=== PATIENT | female | born 1950 | race Caucasian/White ===

== ENCOUNTER 2016-05-29 21:21 | Emergency (ER) | payer MEDICARE, OTHER ==
[~2016-05-29] VITALS: Ht 170.2 cm; Wt 107.3 kg
[2016-05-29 21:30] VITALS: Ht 170.2 cm; Wt 107.3 kg
--- NOTE | 2016-05-29 21:41 | ERA ---
ER Documentation Chief Complaint Date/Time DATE: 05/29/16 TIME: 21:40 Chief Complaint Dizziness HPI The patient is a 66-year-old female, presenting to the ER because of dizziness and nausea while she was having a loose bowel movement in the restroom. He had a mechanical fall, denies any head trauma, denies syncope, near syncope, neck pain, chest pain, dyspnea, abdominal pain, vomiting, dysuria. She does not smoke does not drink Past medical history: Diabetes mellitus, rheumatoid arthritis, hypertension, dyslipidemia, osteoporosis, bilateral Charcot feet Past surgical history: Glaucoma, oral tumor, right ankle in 2014 ROS All systems reviewed and are negative except as per history of present illness. Medications Home Meds Active Scripts Acetaminophen* (Tylenol*) 325 Mg Tablet, 2 TAB PO Q6 Y for PAIN AND OR ELEVATED TEMP, #20 TAB Prov:FER SANCHEZ MD 05/30/16 Ciprofloxacin Hcl* (Ciprofloxacin Hcl*) 500 Mg Tablet, 500 MG PO BID for 7 Days , TAB Prov:FER SANCHEZ MD 05/30/16 Allergies Allergies: Coded Allergies: No Known Allergy (Unverified , 05/29/16) Physical Exam Vitals Vital Signs Date Time Temp Pulse Resp B/P Pulse Ox O2 Delivery O2 Flow Rate FiO2 05/30/16 00:30 75 21 118/53 97 Room Air 05/30/16 00:22 99.7 05/29/16 23:32 102.0 75 18 104/64 97 Nasal Cannula 2.0 05/29/16 21:30 Nasal Cannula 2 05/29/16 21:30 104.2 90 18 134/61 86 Physical Exam Const: No acute distress. Head: Atraumatic. Eyes: Normal Conjunctiva. ENT: Normal External Ears, Nose and Mouth. Neck: Full range of motion. No meningismus. Resp: Clear to auscultation bilaterally. Cardio: Regular rate and rhythm, no murmurs. Abd: Soft, non distended, normal bowel sounds, non tender. Skin: No petechiae or rashes. Back: No midline or flank tenderness. Ext: No cyanosis, or edema. Right ankle is immobilized Neur: Awake and alert. No focal deficit Psych: Normal Mood and Affect. Result Diagram: 05/29/16 6704 05/29/16 0100 Results 24 hrs Laboratory Tests Test 05/29/16 21:55 05/29/16 23:20 05/29/16 23:45 05/30/16 00:57 White Blood Count 11.010^3/ul Red Blood Count 3.8110^6/ul Hemoglobin 10.3g/dl Hematocrit 32.7% Mean Corpuscular Volume 85.8fl Mean Corpuscular Hemoglobin 27.0pg Mean Corpuscular Hemoglobin Concent 31.5g/dl Red Cell Distribution Width 17.1% Platelet Count 34418^3/UL Mean Platelet Volume 11.2fl Neutrophils % 71.6% Lymphocytes % 14.4% Monocytes % 12.2% Eosinophils % 0.8% Basophils % 0.5% Nucleated Red Blood Cells % 0.0/100WBC Neutrophils # 7.910^3/ul Lymphocytes # 1.610^3/ul Monocytes # 1.310^3/ul Eosinophils # 0.110^3/ul Basophils # 0.110^3/ul Nucleated Red Blood Cells # 0.010^3/ul Prothrombin Time 14.8Sec Prothrombin Time Ratio 1.2 INR International Normalized Ratio 1.16 Activated Partial Thromboplast Time 30.7Sec Lactic Acid Level 1.7mmol/L 1.2mmol/L Sodium Level 133mmol/L Potassium Level 4.2mmol/L Chloride Level 99mmol/L Carbon Dioxide Level 26mmol/L Anion Gap 12 Blood Urea Nitrogen 33mg/dl Creatinine 1.83mg/dl Glucose Level 96mg/dl Calcium Level 8.4mg/dl Total Bilirubin < -0.3mg/dl Direct Bilirubin mg/dl Indirect Bilirubin < -0.3mg/dl Aspartate Amino Transf (AST/SGOT) 26IU/L Alanine Aminotransferase (ALT/SGPT) 23IU/L Alkaline Phosphatase 83IU/L Troponin I 0.025ng/ml Total Protein 6.4g/dl Albumin 3.5g/dl Globulin 2.90g/dl Albumin/Globulin Ratio 1.20 Lipase 28U/L Bedside Urine pH (LAB) 5.5 Bedside Urine Protein (LAB) 1+ Bedside Urine Glucose (UA) Negative Bedside Urine Ketones (LAB) Trace Bedside Urine Blood Negative Bedside Urine Nitrite (LAB) Negative Bedside Urine Leukocyte Esterase (L Negative Current Medications Medications (Trade) Dose Ordered Sig/Pham Route PRN Reason Start Time Stop Time Status Last Admin Dose Admin Acetaminophen (Tylenol Tab) 650 mg ONCE STAT PO 3/30/17 21:52 05/29/16 21:54 DC 05/29/16 22:20 Ibuprofen (Motrin) 600 mg ONCE ONCE PO 05/29/16 22:00 05/29/16 22:01 DC 05/29/16 22:20 Ciprofloxacin (Cipro) 500 mg ONCE ONCE PO 05/30/16 01:30 05/30/16 01:31 Procedures/MDM [place] [id number] Radiology Main Line: [phone] DIAGNOSTIC IMAGING REPORT Patient: KHLOE BERG : 1950 Age: 66 Sex: F MR #: [id number] DOS: 05/29/162151 Ordering MD: FER SANCHEZ MD Location: E/R Room/Bed: PROCEDURE: US bilateral lower extremity veins. CLINICAL INDICATION: Bilateral leg pain and swelling. TECHNIQUE: Multiple longitudinal and transverse images of the bilateral lower extremity veins were obtained with ortiz scale and color Doppler imaging. The common femoral vein, femoral vein, and popliteal vein were evaluated. 2D grayscale measurements with compression sonography, color Doppler, and pulsed Doppler with augmentation. COMPARISON: No prior studies are available for comparison. FINDINGS: The bilateral common femoral, femoral and popliteal veins are normally compressible throughout. Color flow demonstrates normal filling of the vessels. Normal waveforms are visualized and there is normal response to augmentation. IMPRESSION: 1. No evidence of deep vein thrombosis involving either lower extremity. RPTAT: QQ .Chris Espinoza MD, MD Date Time Electronically viewed and signed by .Chris Espinoza MD, on 05/29/2016 22:30 .R/ CC: FER SANCHEZ MD [place] [address] Radiology Main Line: [phone] DIAGNOSTIC IMAGING REPORT Patient: KHLOE BERG : 1950 Age: 66 Sex: F MR #: [id number] [facility] #: [id number] DOS: 05/29/162151 Ordering MD: FER SANCHEZ MD Location: E/R Room/Bed: PROCEDURE: XR Chest. CLINICAL INDICATION: Cough. Sepsis. TECHNIQUE: Single frontal view. COMPARISON: None. FINDINGS: There is mild atelectasis at the lung bases. The lungs are otherwise clear. The heart size is normal. There is no pleural effusion. There is no pneumothorax. IMPRESSION: 1. Mild atelectasis at the lung bases. 2. Otherwise normal chest x-ray. RPTAT: QQ .Chris Espinoza MD, MD Date Time Electronically viewed and signed by .Chris Espinoza MD, MD on 05/29/2016 22:30 .R/ CC: FER SANCHEZ MD EKG: Read by emergency physician Rate/Rhythm: Normal Sinus Rhythm 85 beats/min QRS, ST, T-waves: No ST elevation, no T inversion, LAD, LVH Impression: Abnormal EKG MEDICAL MAKING DECISION: The patient is a 66-year-old female, presenting with acute diarrhea, acute dehydration, acute febrile illness, acute dehydration, acute renal insufficiency and acute dizziness, most likely due to acute dehydration. She was treated with Motrin and Tylenol for fever and Cipro for suspected infectious diarrhea. The differential diagnoses considered include but are not limited to cholelithiasis, cholecystitis, cystitis, pancreatitis, hepatitis, gastritis, peptic ulcer disease, gastric ulcer, appendicitis, diverticulitis, cholangitis, choledocholithiasis, partial small bowel obstruction. The differential diagnoses for acute dizziness considered include but are not limited to central causes such as cerebellar infarct, cerebellar hemorrhage, cerebellar tumor, acoustic neuroma, peripheral causes such as benign positional vertigo, labyrinthitis, medication, Meniere's disease. Departure Diagnosis: Primary Impression: Acute febrile illness Additional Impressions: Diarrhea Renal insufficiency Dehydration Dizziness Anemia Condition: Good Comments She was discharged with Cipro and Tylenol and advised to return tomorrow for reevaluation FER SANCHEZ MD May 29, 2016 21:41
[2016-05-29] MEDS ORDERED: ACETAMINOPHEN 325 MG TAB PO STA (21:52)
[2016-05-29] MEDS ORDERED: IBUPROFEN 600 MG TAB PO ONE (22:00)
[2016-05-29 22:09] LABS: ADD SCAN DIFF NO
[2016-05-29 22:10] LABS: BASOPHIL # 0.1 10^3/ul (0.0-0.1); BASOPHILS % 0.5 % (0.0-2.0); EOSINOPHILS # 0.1 10^3/ul (0.0-0.5); EOSINOPHILS % 0.8 % (0.0-7.0); HEMATOCRIT 32.7 % (37.0-47.0); HEMOGLOBIN 10.3 g/dl (12.0-16.0); LYMPHOCYTES # 1.6 10^3/ul (0.8-2.9); LYMPHOCYTES % 14.4 % (15.0-51.0); MEAN CORPUSCULAR HGB CONC 31.5 g/dl (32.0-37.0); MEAN CORPUSCULAR VOLUME 85.8 fl (82.0-101.0); MEAN PLATELET VOLUME 11.2 fl (7.4-10.4); MONOCYTE # 1.3 10^3/ul (0.3-0.9); MONOCYTES % 12.2 % (0.0-11.0); NEUTROPHIL # 7.9 10^3/ul (1.6-7.5); NEUTROPHILS % 71.6 % (39.0-77.0); PLATELET COUNT 192 10^3/UL (140-415); RED BLOOD COUNT 3.81 10^6/ul (4.20-5.40); RED CELL DISTRIBUTION WIDTH 17.1 % (11.5-14.5)
[2016-05-29 22:24] LABS: INR 1.16; PARTIAL THROMBOPLASTIN TIME 30.7 Sec (25.0-35.0); PROTIME 14.8 Sec (12.2-14.2); PT RATIO 1.2
--- NOTE | 2016-05-29 22:30 | RADRPT ---
PROCEDURE: XR Chest. CLINICAL INDICATION: Cough. Sepsis. TECHNIQUE: Single frontal view. COMPARISON: None. FINDINGS: There is mild atelectasis at the lung bases. The lungs are otherwise clear. The heart size is normal. There is no pleural effusion. There is no pneumothorax. IMPRESSION: 1. Mild atelectasis at the lung bases. 2. Otherwise normal chest x-ray. RPTAT: QQ .Chris Espinoza MD, MD Date Time Electronically viewed and signed by .Chris Espinoza MD, MD on 05/29/2016 22:30 .R/
--- NOTE | 2016-05-29 22:31 | RADRPT ---
PROCEDURE: US bilateral lower extremity veins. CLINICAL INDICATION: Bilateral leg pain and swelling. TECHNIQUE: Multiple longitudinal and transverse images of the bilateral lower extremity veins were obtained with ortiz scale and color Doppler imaging. The common femoral vein, femoral vein, and popl iteal vein were evaluated. 2D grayscale measurements with compression sonography, color Doppler, and pulsed Doppler with augmentation. COMPARISON: No prior studies are available for comparison. FINDINGS: The bilateral common femoral, femoral and popliteal veins are normally compressible throughout. Col or flow demonstrates normal filling of the vessels. Normal waveforms are visualized and there is no rmal response to augmentation. IMPRESSION: 1. No evidence of deep vein thrombosis involving either lower extremity. RPTAT: QQ .Chris Espinoza MD, MD Date Time Electronically viewed and signed by .Chris Espinoza MD, on 05/29/2016 22:30 .R/
[2016-05-29 23:44] LABS: ALBUMIN 3.5 g/dl (3.3-4.9); CHLORIDE 99 mmol/L (97-110); SODIUM 133 mmol/L (135-144)
[2016-05-29 23:45] LABS: POTASSIUM 4.2 mmol/L (3.5-5.1)
[2016-05-29 23:46] LABS: CREATININE 1.83 mg/dl (0.44-1.00)
[2016-05-29 23:47] LABS: ALANINE AMINOTRANSFERASE 23 IU/L (13-69); ALKALINE PHOSPHATASE 83 IU/L (42-121); ANION GAP 12 (8-16); ASPARTATE AMINO TRANSFERASE 26 IU/L (15-46); BLOOD UREA NITROGEN 33 mg/dl (7-20); CALCIUM 8.4 mg/dl (8.4-10.2); CARBON DIOXIDE 26 mmol/L (21-31); GLUCOSE 96 mg/dl (70-220); TOTAL PROTEIN 6.4 g/dl (6.1-8.1)
[2016-05-30 00:14] LABS: TROPONIN-I 0.025 ng/ml (0.00-0.12)
[2016-05-30 00:22] VITALS: TEMP 99.7
[2016-05-30 00:50] LABS: BILIRUBIN,INDIRECT < -0.3 mg/dl (0-1.1); BILIRUBIN,TOTAL < -0.3 mg/dl (0.2-1.3)
[2016-05-30 00:58] LABS: URINE BLOOD (Dip) POC Negative (NEGATIVE)
[2016-05-30] MEDS ORDERED: CIPR500T4 PO ×2 (01:21→01:37)
[2016-05-30] MEDS ORDERED: ACET325T33 PO ×2 (01:21→01:37)
[2016-05-30] MEDS ORDERED: CIPROFLOXACIN 500 MG TAB PO ONE (01:30)
[2016-05-30] MEDS ORDERED: SOD CHLORIDE 0.9% 500 ML IV ONE (02:00)
[2016-05-30 03:15] VITALS: BP 118/67; PULSE 68; RESP 17
== END 2016-05-30 03:15 | disposition home or self-care (01) ==
LOC: E/R 21:21
DX: R50.9 Fever, unspecified (principal); R19.7 Diarrhea, unspecified; E86.0 Dehydration; D64.9 Anemia, unspecified; I10 Essential (primary) hypertension; E11.9 Type 2 diabetes mellitus without complications; N28.9 Disorder of kidney and ureter, unspecified; M79.89 Other specified soft tissue disorders
CPT/HCPCS: 71010; 80053; 81003; 83605; 83690; 84484; 85025; 85610; 85730; 87040; 87086; 93005; 93970; J7040; 36415; P9612

== ENCOUNTER 2017-05-18 14:48 | Inpatient (IN) | END 2017-05-21 17:50 | disposition home health service (06) | DRG 683 ==